=== PATIENT | male | born 1960 | race Caucasian/White ===

== ENCOUNTER 2024-12-23 01:03 | Emergency (ER) | payer MEDICARE, OTHER ==
[~2024-12-23] VITALS: Ht 182.9 cm; Wt 75.0 kg
[2024-12-23 01:44] VITALS: TEMP 98.1
[2024-12-23] MEDS: IBUPROFEN 400 MG TABLET PO ONE (04:09)
[2024-12-23] MEDS: ACETAMINOPHEN 500 MG TABLET PO ONE (04:09)
[2024-12-23 06:30] VITALS: BP 119/67; PULSE 75; RESP 15; O2SAT 100
== END 2024-12-23 08:44 ==
LOC: EMS 01:11
DX: S52.201A Unspecified fracture of shaft of right ulna, initial encounter for closed fracture (principal); Y08.89XA Assault by other specified means, initial encounter; Y93.89 Activity, other specified; Y92.89 Other specified places as the place of occurrence of the external cause; Y99.8 Other external cause status
CPT/HCPCS: 99284; 73030-TC; 73060-TC; 73080-TC; 73090-TC; Z7502; Z7610